=== PATIENT | female | born 1940 | race African-American/Black ===

== ENCOUNTER 2016-08-18 06:30 | Outpatient (RCR) | payer OTHER ==
[~2016-08-18 06:30] MED LIST: ACETAMINOPHEN500 MG ORAL; ACIPHEX20 MG ORAL; ASPIRIN-LOW81 MG ORAL; COLACE100 MG ORAL; CYTOMEL5 MCG ORAL; DITROPAN XL10 MG ORAL; FLONASE1 SPRAYS; GABAPENTIN100 MG ORAL; LISINOPRIL10 MG ORAL; SYNTHROID75 MCG ORAL; ZOFRAN4 MG PO
== END 2016-09-05 | disposition home or self-care (01) ==
LOC: PTY 06:30
DX: M17.12 Unilateral primary osteoarthritis, left knee (principal)
CPT/HCPCS: 97035; 97110; 97140; 97162; G0283

== ENCOUNTER 2016-09-08 07:47 | Outpatient (RCR) | payer OTHER | END 2016-10-06 | disposition home or self-care (01) | LOC: PTY 07:47 | DX: M17.12 Unilateral primary osteoarthritis, left knee (principal); M51.37 Other intervertebral disc degeneration, lumbosacral region; M53.3 Sacrococcygeal disorders, not elsewhere classified | CPT/HCPCS: 97035; 97110; 97140; G0283 ==

== ENCOUNTER 2017-02-17 12:34 | Emergency (ER) | payer OTHER ==
[~2017-02-17] VITALS: Ht 182.9 cm; Wt 115.7 kg
[2017-02-17] MEDS ORDERED: ACIPHEX20 MG ORAL (12:40)
[2017-02-17] MEDS ORDERED: DITROPAN XL5 MG ORAL (12:40)
[2017-02-17] MEDS ORDERED: Methocarbamol 750mg tab ORAL ONE (13:30)
[2017-02-17] MEDS ORDERED: ROBAXIN-750750 MG PO (13:38)
--- NOTE | 2017-02-17 13:38 | Emergency Room Report ---
History of Present Illness General Chief Complaint: Pain Source: Patient, Medical Record Present Illness HPI 76-year-old female with obesity, hypertension, chronic back and lower extremity pain, on gabapentin, presenting with right thigh cramp. Occurred gradually today, worse with movement, denies any trauma. Denies fever chills lower extremity weakness urinary retention. Allergies: Coded Allergies: ACETAMINOPHEN (Verified Allergy, Unknown, ITCHING, 07/02/09) ATORVASTATIN (Verified Allergy, Unknown, ITCHING, 07/02/09) BETAMETHASONE (Verified Allergy, Unknown, ITCHING, 07/02/09) BETAMETHASONE BENZOATE (Verified Allergy, Unknown, ITCHING, 07/02/09) CEFAZOLIN (Verified Allergy, Unknown, ITCHING, 07/02/09) CLINDAMYCIN (Verified Allergy, Unknown, ITCHING, 07/02/09) CLOTRIMAZOLE (Verified Allergy, Unknown, ITCHING, 07/02/09) ECONAZOLE (Verified Allergy, Unknown, ITCHING, 07/02/09) FLUCONAZOLE (Verified Allergy, Unknown, ITCHING, 07/02/09) FLUCYTOSINE (Verified Allergy, Unknown, ITCHING, 07/02/09) ITRACONAZOLE (Verified Allergy, Unknown, ITCHING, 07/02/09) KETOCONAZOLE (Verified Allergy, Unknown, ITCHING, 07/02/09) MICONAZOLE (Verified Allergy, Unknown, ITCHING, 07/02/09) NATAMYCIN (Verified Allergy, Unknown, ITCHING, 07/02/09) NYSTATIN (Verified Allergy, Unknown, ITCHING, 07/02/09) PROPOXYPHENE (Verified Allergy, Unknown, ITCHING, 07/02/09) SIMVASTATIN (Verified Allergy, Unknown, ITCHING, 07/02/09) SODIUM CHLORIDE (Verified Allergy, Unknown, ITCHING, 07/02/09) SODIUM CHLORIDE FOR INHALATION (Verified Allergy, Unknown, ITCHING, ) SODIUM CHLORIDE, ISO-OSMOTIC (Verified Allergy, Unknown, ITCHING, 07/02/09) SULFONYLUREAS (Verified Allergy, Unknown, ITCHING, 07/02/09) TERBINAFINE (Verified Allergy, Unknown, ITCHING, 07/02/09) TOLNAFTATE (Verified Allergy, Unknown, ITCHING, 07/02/09) UNABLE TO ASSESS (Unverified , 02/17/17) Patient History Past Medical History: see triage record Past Surgical History: none Pertinent Family History: none Reviewed Nursing Documentation: PMH: Agreed, PSxH: Agreed Nursing Documentation-PMH Past Medical History: No History, Except For Hx Cardiac Problems: Yes Hx Hypertension: Yes Hx Asthma: Yes Hx Cancer: Yes - THYROID CANCER. Hx Gastrointestinal Problems: Yes Hx Dialysis: No History Of Psychiatric Problem: No Hx Neurological Problems: No Review of Systems All Other Systems: negative except mentioned in HPI Physical Exam Vital Signs Date Time Temp Pulse Resp B/P (MAP) Pulse Ox O2 Delivery O2 Flow Rate FiO2 02/17/17 12:33 97.5 116 16 154/60 99 Room Air Sp02 EP Interpretation: reviewed, normal General Appearance: normal inspection, well appearing, no apparent distress, alert, GCS 15, non-toxic Head: normocephalic, atraumatic Eyes: bilateral eye normal inspection, bilateral eye PERRL, bilateral eye EOMI ENT: normal ENT inspection, normal pharynx, normal voice, moist mucus membranes Neck: normal inspection, full range of motion, supple Respiratory: normal inspection, lungs clear, normal breath sounds, no respiratory distress, no retraction, no wheezing, speaking full sentences, chest symmetrical Cardiovascular #1: normal inspection, regular rate, rhythm, no edema, normal capillary refill Cardiovascular #2: 2+ radial (R), 2+ radial (L) Gastrointestinal: normal inspection, non tender, soft, non-distended, no guarding Musculoskeletal: normal range of motion, other - Right buttocks/right thigh tender to palpation, no swelling noted, no signs of cellulitis, no calf tenderness, full range of motion all extremities Neurologic: normal inspection, alert, oriented x3, responsive, motor strength/ tone normal, sensory intact, speech normal Psychiatric: normal inspection, judgement/insight normal, memory normal Skin: normal inspection, normal color, no rash, warm/dry, well hydrated, normal turgor Medical Decision Making Diagnostic Impression: Primary Impression: Thigh pain ER Course 76-year-old female with history of chronic pain p/w cramps and pain of right thigh DDX: likely musculoskeletal back pain vs. muscular strain vs. sciatica Serious diagnoses such as cord compression, epidural abscess is unlikely in this patient given the clinical scenario and abscess of neurological symptoms or findings. Patient appears nontoxic. Plan: robaxin ER course: Patient has remained nontoxic appearing and ambulatory in the ED. Pain improved w/ medications Disposition: Patient will be discharged to home Will be discharged with Robaxin Patient cautioned of the effects of robaxin including possible impairment of physical or mental abilities. Patient was instructed to refrain from operating machinery or driving. Patient is also cautioned on the GI effects of motrin and to take sparingly. Patient verbalized understanding. Strict precautions discussed with patient on when to emergently return to the ED which includes severe/worsening back pain, leg weakness/numbness, urinary retention/incontinence, fever or chills, which may indicate severe illness. Patient is to follow up with their PMD within 5 days. Patient agrees with plan. Please note that this Emergency Department Report was dictated using [employer] technology software, occasionally this can lead to erroneous entry secondary to interpretation by the dictation equipment. Last Vital Signs Date Time Temp Pulse Resp B/P (MAP) Pulse Ox O2 Delivery O2 Flow Rate FiO2 02/17/17 12:40 96.9 77 17 99 Room Air 02/17/17 12:33 154/60 Disposition: HOME, SELF-CARE Condition: Improved Scripts Methocarbamol* (ROBAXIN-750*) 750 Mg Tablet 750 MG PO QID, #28 TAB 0 Refills Prov: Tiffanie Matta M.D. 02/17/17 Referrals: [facility] (PCP) Patient Instructions: Leg Cramps Tiffanie Matta M.D. Feb 17, 2017 13:38
[2017-02-17 14:40] VITALS: BP 162/92
== END 2017-02-17 14:40 | disposition home or self-care (01) ==
LOC: EDBD 12:34 → EMR 13:20
DX: M79.651 Pain in right thigh (principal); G89.29 Other chronic pain; I10 Essential (primary) hypertension; J45.909 Unspecified asthma, uncomplicated; Z85.850 Personal history of malignant neoplasm of thyroid; Z88.2 Allergy status to sulfonamides; Z88.8 Allergy status to other drugs, medicaments and biological substances
CPT/HCPCS: 99283

== ENCOUNTER 2017-08-25 08:30 | Outpatient (RCR) | payer OTHER ==
[~2017-08-25 08:30] MED LIST changes: +DITROPAN XL5 MG ORAL; +ROBAXIN-750750 MG PO
== END 2017-09-05 | disposition home or self-care (01) ==
LOC: PTY 08:30
DX: M51.36 Other intervertebral disc degeneration, lumbar region (principal); M48.062 Spinal stenosis, lumbar region with neurogenic claudication

== ENCOUNTER 2017-09-06 08:53 | Outpatient (RCR) | payer OTHER | END 2017-10-06 | disposition home or self-care (01) | LOC: PTY 08:53 | DX: M51.36 Other intervertebral disc degeneration, lumbar region (principal); M48.062 Spinal stenosis, lumbar region with neurogenic claudication ==

== ENCOUNTER 2017-10-24 08:30 | Outpatient (RCR) | payer OTHER | END 2017-11-05 | disposition home or self-care (01) | LOC: PTY 08:30 | DX: M51.36 Other intervertebral disc degeneration, lumbar region (principal); M48.062 Spinal stenosis, lumbar region with neurogenic claudication ==

== ENCOUNTER 2017-11-07 08:10 | Outpatient (RCR) | payer OTHER | END 2017-12-06 | disposition home or self-care (01) | LOC: PTY 08:10 | DX: M51.36 Other intervertebral disc degeneration, lumbar region (principal); M48.062 Spinal stenosis, lumbar region with neurogenic claudication ==

== ENCOUNTER 2018-02-22 08:30 | Outpatient (RCR) | payer OTHER | END 2018-03-08 | disposition home or self-care (01) | LOC: PTY 08:30 | DX: M17.0 Bilateral primary osteoarthritis of knee (principal) ==

== ENCOUNTER 2018-03-09 08:30 | Outpatient (RCR) | payer OTHER | END 2018-04-07 | disposition home or self-care (01) | LOC: PTY 08:30 | DX: M17.0 Bilateral primary osteoarthritis of knee (principal) ==